=== PATIENT | female | born 1970 | race Caucasian/White ===

== ENCOUNTER 2021-04-23 07:13 | Day surgery (SDC) | payer MEDICAID, SELFPAY ==
[~2021-04-23] VITALS: Ht 152.4 cm; Wt 55.3 kg
[2021-04-23 07:40] LABS: HCG,QUAL RESULT NEGATIVE (NEGATIVE)
[2021-04-23] MEDS ORDERED: MIDAZOLAM HCL 5 MG/5 ML VIAL ONE (08:38)
[2021-04-23] MEDS ORDERED: MEPERIDINE 100 MG INJ. 100 MG/ML VIAL ONE (08:38)
[2021-04-23 11:23] VITALS: BP_SYST 99
== END 2021-04-23 10:40 | disposition home or self-care (01) ==
LOC: SDS 07:13 → SMU 07:14 → SDS 10:40
PROVIDERS: ATTEND Internal Medicine Gastroenterology
DX: Z12.11 Encounter for screening for malignant neoplasm of colon (principal); K57.30 Diverticulosis of large intestine without perforation or abscess without bleeding; K64.8 Other hemorrhoids; Z20.822 Contact with and (suspected) exposure to COVID-19; Z79.899 Other long term (current) drug therapy
CPT/HCPCS: 36415; 45378; 84703; 87426; 99152; G0378; J2175; J2250